=== PATIENT | female | born 1965 | race African-American/Black ===

== ENCOUNTER 2018-09-13 00:55 | Inpatient (IN) | payer OTHER, SELFPAY ==
[2018-09-13 01:35] LABS: INR-International Normal Ratio 1.1; PTT 30.1 SEC (22.9-36.1); Prothrombin Time 13.9 SEC (12.0-14.7)
[2018-09-13 01:38] LABS: ALT (SGPT) 87 U/L (8-55); AST (SGOT) 148 U/L (5-34); Albumin 3.6 g/dL (3.5-5.0); Alkaline Phosphatase 109 U/L (40-150); Anion Gap 16 mmol/L (10-20); BUN (Urea Nitrogen) 15 mg/dL (9.8-20.1); Bilirubin, Total 0.3 mg/dL (0.2-1.2); Calc. Creatinine Clearance 0 mL/min (70-130); Calcium 8.6 mg/dL (7.8-10.44); Carbon Dioxide 16 mmol/L (22-29); Chloride 112 mmol/L (98-107); Estimated GFR-MDRD 80; Globulin 2.8 g/dL (2.4-3.5); Glucose 189 mg/dL (70-105); Potassium 3.9 mmol/L (3.5-5.1); Protein, Total 6.4 g/dL (6.0-8.3); Sodium 140 mmol/L (136-145)
[2018-09-13] MEDS ORDERED: fentaNYL Citrate/PF 2,000 MCG in Sodium Chloride 0.9% 60 ML IV SCH ×2 (01:41→03:15)
[2018-09-13 01:43] LABS: Acetaminophen Less than 6.0 mcg/mL (10.0-30.0); Alcohol 25 mg/dL (Less than 10); Lipase 42 U/L (8-78); Magnesium 2.2 mg/dL (1.6-2.6); Salicylate Less than 8.0 mg/dL (15.0-30.0)
[2018-09-13 01:50] LABS: Band 17 % (5-11); Eosinophils 1 % (0-10); Lymphocytes 28 % (21-51); MDiff Complete? YES; Mean Corpuscular HGB CONC 32.1 g/dL (32.0-36.0); Mean Corpuscular Hemoglobin 30.9 pg (27.0-31.0); Mean Corpuscular Volume 96.3 fL (78.0-98.0); Mean Platelet Volume 7.8 fL (7.4-10.4); Monocytes 2 % (0-10); Neutrophil 52 % (42-75); Platelet Count 320 thou/uL (130-400); RBC Distribution Width 12.3 % (11.5-14.5); Red Blood Cell (RBC) Count 3.54 mill/uL (4.20-5.40); White Blood Cell (WBC) Count 22.8 thou/uL (4.8-10.8)
[2018-09-13 01:51] LABS: Actual Bicarbonate (HCO3a) 14.8 mEq/L (22-28); Analyzer IN Cardio ER; Base Excess (BEa) -11.9 mEq/L (-2.0 to +3.0); CO2 Tension 36.8 mmHg (35.0-45.0); Calcium, Ionized 1.03 mmol/L (1.12-1.30); Carboxyhemoglobin (COHb) 1.2 gm% (0.0-3.0); Hemoglobin (Hb) 7.7 g/dL (12.0-16.0); Potassium - ABG Lab 3.25 mmol/L (3.70-5.30)
[2018-09-13] MEDS ORDERED: Adacel (T-DAP) 0.5 ML VIAL ONE (01:52)
[2018-09-13] MEDS ORDERED: Gentamicin Sulfate 360 MG in Sodium Chloride 0.9% 100 ML IVPB SCH (02:00)
[2018-09-13 02:03] LABS: Puncture Site RBA; pH, Arterial 7.22 (7.35-7.45)
[2018-09-13] MEDS ORDERED: Ampicillin/Sulbactam 3 GM in Sodium Chloride 0.9% 100 ML IVPB SCH (02:15)
[2018-09-13] MEDS ORDERED: Fentanyl 100 MCG/2 ML VIAL ONE (02:23)
[2018-09-13] MEDS ORDERED: Midazolam HCl 5 mg/5 ml Vial ONE (02:23)
[2018-09-13] MEDS ORDERED: CEFAZOLIN 1 GM VIAL ONE (02:30)
[2018-09-13] MEDS ORDERED: Ondansetron ODT 4 MG TAB PO PRN (02:36)
[2018-09-13] MEDS ORDERED: Dextrose 5% in Water 1,000 ML IV PRN (02:36)
[2018-09-13] MEDS ORDERED: Dextrose 50% Abboject 50 ML SYRINGE SLOW IVP PRN (02:36)
[2018-09-13] MEDS ORDERED: Propofol 1,000 MG/100 ML VIAL IV PRN (02:43)
[2018-09-13] MEDS ORDERED: fentaNYL Citrate/PF 2,000 MCG in Sodium Chloride 0.9% 60 ML IV PRN (02:43)
[2018-09-13 02:51] LABS: Bilirubin Negative (Negative); Blood, Urine Trace (Negative); Clarity CLEAR (Clear); Glucose, Urine (Dipstick) Negative (Negative); Leukocyte Negative (Negative); Nitrite Negative (Negative); Protein, Urine (Dipstick) Negative (Neg-Trace); Specific Gravity, Urine 1.016 (1.002-1.036); Urobilinogen 0.2 mg/dL (0.2-1.0); pH, Urine 5.5 (5.0-9.0)
[2018-09-13 02:54] LABS: Bacteria/HPF None Seen HPF (None Seen); Hyaline Casts/LPF 7-10 HYALINE CAST LPF (0-3 Hyaline); Pathc Cast-AUWi Flag 0.72 (0-2.49); RBC/HPF 0-3 HPF (0-3); Squamous Epithelial 0-3 HPF (0-3); WBC/HPF 0-3 HPF (0-3)
[2018-09-13] MEDS ORDERED: Gentamicin Sulfate 80 MG in Premix Bag 1 BAG IVPB SCH (03:30)
[2018-09-13] MEDS ORDERED: Midazolam HCl 2 mg/2 ml Vial ONE (03:32)
[2018-09-13] MEDS ORDERED: Bacitracin Zinc Ointment 30 gm TUBE ONE (03:56)
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
[2018-09-13 04:35] VITALS: BMI 32.7
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
[2018-09-13] MEDS: Lactated Ringer's 1,000 ML IV SCH ×3 (05:30→16:21)
--- NOTE | 2018-09-13 06:25 | OP ---
PREOPERATIVE DIAGNOSES: Complex soft tissue injury, right knee (Dr. Beltran ____) complex scalp lacer ation of right parietal, periauricular with avulsion injury exposing the periosteum, calvarium, 26 cm complex laceration, full thickness. POSTOPERATIVE DIAGNOSES: Complex soft tissue injury, right knee (Dr. Beltran ____) complex scalp lace ration of right parietal, periauricular with avulsion injury exposing the periosteum, calvarium, 26 c m complex laceration, full thickness. PROCEDURE: Pulse irrigation and washout, sharp debridement of devitalized tissue, layered closure wi th drain. SURGEON: Nik Mcghee M.D. ANESTHESIA: General. NOTE: Dr. Beltran will dictate the complex soft tissue injury about the right knee closure. PROCEDURE IN DETAIL: The patient was taken to the operating room where under general anesthesia, the scalp was trimmed of uncapped hair that was in the way. The laceration extended from the preauricul ar facial area over the parietal area of the scalp to the occiput and was complex with multiple exten sions. It was devitalized periosteum and muscle layers. Pulse irrigation was performed after Betadi ne prep, devitalized tissue debrided. Complex avulsion laceration then approximated by approximating subcutaneous tissues with 3-0 Monocryl to approximate the wound and then continued suture of 3-0 Pro lily used to close the wound. A #10 Uzbek KAREN drain placed and secured with 3-0 Prolene and placed t o suction. The patient was transferred to the critical care unit in critical condition.
[2018-09-13 06:51] LABS: Actual Bicarbonate (HCO3a) 18.8 mEq/L (22-28); Base Excess (BEa) -5.8 mEq/L (-2.0 to +3.0); CO2 Tension 33.5 mmHg (35.0-45.0); Carboxyhemoglobin (COHb) 0.5 gm% (0.0-3.0); Hemoglobin (Hb) 9.6 g/dL (12.0-16.0); O2 Tension (PaO2) 236.6 mmHg (80.0-100.0); pH, Arterial 7.37 (7.35-7.45)
[2018-09-13 06:53] LABS: Puncture Site RBRACH
[2018-09-13 06:54] LABS: ALV-art Gradient 78.025 (0-20)
[2018-09-13 08:07] LABS: Anion Gap 13 mmol/L (10-20); BUN (Urea Nitrogen) 13 mg/dL (9.8-20.1); Calc. Creatinine Clearance 122 mL/min (70-130); Calcium 7.2 mg/dL (7.8-10.44); Carbon Dioxide 21 mmol/L (22-29); Chloride 112 mmol/L (98-107); Estimated GFR-MDRD Greater than 90; Glucose 141 mg/dL (70-105); Magnesium 1.5 mg/dL (1.6-2.6); Phosphorus 2.9 mg/dL (2.3-4.7); Sodium 142 mmol/L (136-145)
[2018-09-13 08:27] LABS: #Lymphocytes 0.7 thou/uL (1.20-3.40); #Monocytes 1.3 thou/uL (0.11-0.59); #Neutrophils 17.5 thou/uL (1.40-6.50); %Eosinophils 0.2 % (0.0-10.0); %Lymphocytes 3.7 % (21.0-51.0); %Monocytes 6.8 % (0.0-10.0); %Neutrophils 89.3 % (42.0-75.0); Hemoglobin 9.1 g/dL (12.0-16.0); Mean Corpuscular HGB CONC 33.3 g/dL (32.0-36.0); Mean Corpuscular Hemoglobin 29.4 pg (27.0-31.0); Mean Corpuscular Volume 88.4 fL (78.0-98.0); Mean Platelet Volume 8.3 fL (7.4-10.4); Platelet Count 114 thou/uL (130-400); RBC Distribution Width 13.2 % (11.5-14.5); White Blood Cell (WBC) Count 19.5 thou/uL (4.8-10.8)
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
[2018-09-13] MEDS: Famotidine/PF 20 mg/2ml Vial SLOW IVP SCH ×2 (09:56→21:34)
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
[2018-09-13] MEDS ORDERED: Ketorolac Tromethamine 30 MG/ML VIAL ONE (10:38)
[2018-09-13] MEDS ORDERED: Naloxone HCl 0.4 mg/ml Vial IV PRN ×2 (10:44→10:49)
[2018-09-13] MEDS ORDERED: diphenhydrAMINE 50 MG/ML VIAL IVP PRN ×2 (10:44→10:49)
[2018-09-13] MEDS ORDERED: Promethazine HCl 25 MG/ML VIAL IM PRN ×2 (10:44→10:49)
[2018-09-13] MEDS ORDERED: diphenhydrAMINE 25 MG CAP PO PRN ×2 (10:44→10:49)
[2018-09-13] MEDS ORDERED: diphenhydrAMINE 50 MG/ML VIAL IM PRN ×2 (10:44→10:49)
[2018-09-13] MEDS ORDERED: Calcium Chloride 1 GM/10 ML Abboject SYRINGE IVP SCH (10:45)
[2018-09-13] MEDS ORDERED: Communication Order-Pharmacy FS SCH ×2 (10:45→11:00)
[2018-09-13] MEDS: Ondansetron PF 4 MG/2 ML Vial IVP PRN (11:38)
[2018-09-13] MEDS: Acetaminophen 500 MG TAB PO SCH ×3 (11:39→23:48)
[2018-09-13] MEDS: HYDROmorphone 10 mg/100 ml CADD IVPB PRN (11:52)
[2018-09-13] MEDS ORDERED: ISOVUE-370 76%-LOCM 1 ML ONE (11:57)
[2018-09-13] MEDS ORDERED: Ketorolac Tromethamine 30 MG/ML VIAL IVP SCH (12:00)
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
[2018-09-13] MEDS: Ketorolac Tromethamine 30 MG/ML VIAL IVP SCH ×3 (16:18→23:48)
[2018-09-13] MEDS ORDERED: PHENYLEPHRINE-NS 100 MCG/ML 10 ML SYRINGE ONE (17:08)
[2018-09-14] MEDS: Lactated Ringer's 1,000 ML IV SCH ×3 (00:04→22:00)
[2018-09-14] MEDS: Gentamicin Sulfate 80 MG in Premix Bag 1 BAG IVPB SCH ×3 (02:51→19:12)
[2018-09-14] MEDS: Acetaminophen 500 MG TAB PO SCH ×3 (05:29→19:37)
[2018-09-14] MEDS: Ketorolac Tromethamine 30 MG/ML VIAL IVP SCH ×4 (05:29→23:59)
[2018-09-14 06:14] LABS: #Lymphocytes 1.2 thou/uL (1.20-3.40); #Monocytes 0.8 thou/uL (0.11-0.59); #Neutrophils 8.6 thou/uL (1.40-6.50); %Basophils 0.2 % (0.0-1.0); %Eosinophils 0.2 % (0.0-10.0); %Lymphocytes 11.3 % (21.0-51.0); %Monocytes 7.9 % (0.0-10.0); %Neutrophils 80.5 % (42.0-75.0); Hemoglobin 9.1 g/dL (12.0-16.0); Mean Corpuscular HGB CONC 33.5 g/dL (32.0-36.0); Mean Corpuscular Volume 89.7 fL (78.0-98.0); Mean Platelet Volume 8.3 fL (7.4-10.4); Platelet Count 86 thou/uL (130-400); RBC Distribution Width 13.9 % (11.5-14.5); Red Blood Cell (RBC) Count 3.03 mill/uL (4.20-5.40); White Blood Cell (WBC) Count 10.7 thou/uL (4.8-10.8)
[2018-09-14 06:41] LABS: Anion Gap 11 mmol/L (10-20); BUN (Urea Nitrogen) 10 mg/dL (9.8-20.1); Calc. Creatinine Clearance 132 mL/min (70-130); Calcium 8.3 mg/dL (7.8-10.44); Carbon Dioxide 26 mmol/L (22-29); Chloride 107 mmol/L (98-107); Estimated GFR-MDRD Greater than 90; Glucose 120 mg/dL (70-105); Magnesium 1.7 mg/dL (1.6-2.6); Phosphorus 2.7 mg/dL (2.3-4.7); Potassium 4.5 mmol/L (3.5-5.1); Sodium 139 mmol/L (136-145)
[2018-09-14] MEDS: Famotidine/PF 20 mg/2ml Vial SLOW IVP SCH ×2 (08:10→20:26)
--- NOTE | 2018-09-14 09:42 | PRG ---
DATE OF SERVICE: 09/14/2018 Ms. Anna this morning has been transferred to the floor and extubated. She is somewhat confused, bu t does have several narcotic pain medications on board that may be interfering with her level of cons ciousness and cognitive state. She does frequently wake up enough to have reasonable and appropriate discussion regarding her injuries and expectations. She asked about how long she will be in the hos pital. She was fitted yesterday evening by [facility] for her custom TLSO brace so she will remain on spin al precautions and on bed rest until we can obtain that. Once that has been placed she is free to pa rticipate with physical therapy per Trauma and Orthopedics recommendations. Otherwise, Neurosurgery will continue to follow.
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
[2018-09-14] MEDS ORDERED: HYDROmorphone 0.5 MG/0.5 ML SYRINGE ONE (13:19)
[2018-09-14] MEDS ORDERED: HYDROcodone/Acetaminophen 10/325 mg Tablet PO PRN ×2 (14:05)
[2018-09-14] MEDS ORDERED: Promethazine HCl 25 MG/ML VIAL SLOW IVP PRN (15:44)
[2018-09-14] MEDS ORDERED: Promethazine HCl 25 MG/ML VIAL IM PRN (15:44)
[2018-09-14] MEDS ORDERED: Ondansetron HCl/PF 4 MG/2 ML Vial IVP PRN (15:44)
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
[2018-09-14] MEDS: Ondansetron PF 4 MG/2 ML Vial IVP PRN (17:34)
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
[2018-09-14] MEDS: HYDROmorphone 10 mg/100 ml CADD IVPB PRN (19:07)
[2018-09-15] MEDS: Ondansetron PF 4 MG/2 ML Vial IVP PRN
[2018-09-15] MEDS: Gentamicin Sulfate 80 MG in Premix Bag 1 BAG IVPB SCH ×3 (03:08→18:36)
[2018-09-15] MEDS: Acetaminophen 500 MG TAB PO SCH ×5 (05:51→22:25)
[2018-09-15] MEDS: Ketorolac Tromethamine 30 MG/ML VIAL IVP SCH (05:52)
[2018-09-15 06:33] LABS: Hemoglobin 5.8 g/dL (12.0-16.0); Mean Corpuscular HGB CONC 32.2 g/dL (32.0-36.0); Mean Corpuscular Hemoglobin 29.1 pg (27.0-31.0); Mean Corpuscular Volume 90.5 fL (78.0-98.0); Platelet Count 127 thou/uL (130-400); RBC Distribution Width 13.4 % (11.5-14.5); Red Blood Cell (RBC) Count 1.98 mill/uL (4.20-5.40); White Blood Cell (WBC) Count 12.3 thou/uL (4.8-10.8)
[2018-09-15 06:34] LABS: #Lymphocytes 1.2 thou/uL (1.20-3.40); #Monocytes 0.9 thou/uL (0.11-0.59); #Neutrophils 10.2 thou/uL (1.40-6.50); %Basophils 0.3 % (0.0-1.0); %Eosinophils 0.1 % (0.0-10.0); %Lymphocytes 9.9 % (21.0-51.0); %Monocytes 7.1 % (0.0-10.0); %Neutrophils 82.5 % (42.0-75.0)
[2018-09-15] MEDS: Lactated Ringer's 1,000 ML IV SCH ×2 (08:06→15:13)
[2018-09-15 08:53] LABS: Anion Gap 5 mmol/L (10-20); BUN (Urea Nitrogen) 7 mg/dL (9.8-20.1); Calc. Creatinine Clearance 139 mL/min (70-130); Calcium 8.2 mg/dL (7.8-10.44); Carbon Dioxide 34 mmol/L (22-29); Chloride 104 mmol/L (98-107); Estimated GFR-MDRD Greater than 90; Glucose 114 mg/dL (70-105); Magnesium 1.5 mg/dL (1.6-2.6); Phosphorus 1.7 mg/dL (2.3-4.7); Potassium 4.2 mmol/L (3.5-5.1); Sodium 139 mmol/L (136-145)
[2018-09-15] MEDS ORDERED: Bisacodyl 10 MG SUPP PR PRN (09:04)
[2018-09-15] MEDS: Famotidine/PF 20 mg/2ml Vial SLOW IVP SCH ×2 (10:13→21:23)
[2018-09-15] MEDS ORDERED: Magnesium 2 GM/50 ML 2 GM in Premix Bag 1 BAG IVPB SCH (10:15)
[2018-09-15] MEDS: HYDROcodone/Acetaminophen 10/325 mg Tablet PO SCH ×2 (11:21→18:32)
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
[2018-09-15] MEDS ORDERED: Ketorolac Tromethamine 30 MG/ML VIAL IVP SCH (12:00)
[2018-09-15] MEDS: Ascorbic Acid 500 mg Chewable Tablet PO SCH (21:22)
[2018-09-15] MEDS: Senokot 8.6 MG TAB PO SCH (21:23)
[2018-09-16] MEDS: HYDROcodone/Acetaminophen 10/325 mg Tablet PO SCH ×2 (00:09→06:07)
[2018-09-16] MEDS: Gentamicin Sulfate 80 MG in Premix Bag 1 BAG IVPB SCH (02:00)
[2018-09-16] MEDS: Cyclobenzaprine 10 MG TAB PO PRN ×2 (02:07→08:06)
[2018-09-16] MEDS: Lactated Ringer's 1,000 ML IV SCH ×2 (02:38→06:24)
[2018-09-16] MEDS: Acetaminophen 500 MG TAB PO SCH ×5 (05:40→23:56)
[2018-09-16 05:48] LABS: ALT (SGPT) 33 U/L (8-55); AST (SGOT) 70 U/L (5-34); Albumin 2.8 g/dL (3.5-5.0); Alkaline Phosphatase 83 U/L (40-150); Anion Gap 11 mmol/L (10-20); BUN (Urea Nitrogen) 7 mg/dL (9.8-20.1); Bilirubin, Total 1.1 mg/dL (0.2-1.2); Calc. Creatinine Clearance 130 mL/min (70-130); Calcium 8.4 mg/dL (7.8-10.44); Carbon Dioxide 27 mmol/L (22-29); Chloride 106 mmol/L (98-107); Estimated GFR-MDRD Greater than 90; Globulin 2.5 g/dL (2.4-3.5); Glucose 94 mg/dL (70-105); Magnesium 1.9 mg/dL (1.6-2.6); Potassium 3.9 mmol/L (3.5-5.1); Protein, Total 5.3 g/dL (6.0-8.3); Sodium 140 mmol/L (136-145)
[2018-09-16] MEDS: Famotidine/PF 20 mg/2ml Vial SLOW IVP SCH ×2 (08:06→21:41)
[2018-09-16] MEDS: Senokot 8.6 MG TAB PO SCH ×2 (08:06→21:41)
[2018-09-16] MEDS: Ascorbic Acid 500 mg Chewable Tablet PO SCH ×2 (08:06→21:41)
[2018-09-16] MEDS: Polyethylene Glycol 3350 17 GM Packet PO SCH (08:07)
[2018-09-16 08:10] LABS: #Basophils 0.1 thou/uL (0.0-0.2); #Eosinphils 0.2 thou/uL (0.0-0.7); #Lymphocytes 1.3 thou/uL (1.20-3.40); #Monocytes 0.8 thou/uL (0.11-0.59); #Neutrophils 6.9 thou/uL (1.40-6.50); %Basophils 0.5 % (0.0-1.0); %Eosinophils 2.2 % (0.0-10.0); %Lymphocytes 14.3 % (21.0-51.0); %Monocytes 8.1 % (0.0-10.0); %Neutrophils 74.8 % (42.0-75.0); Hemoglobin 8.2 g/dL (12.0-16.0); Mean Corpuscular HGB CONC 32.5 g/dL (32.0-36.0); Mean Corpuscular Hemoglobin 29.1 pg (27.0-31.0); Mean Corpuscular Volume 89.5 fL (78.0-98.0); Mean Platelet Volume 7.9 fL (7.4-10.4); Platelet Count 165 thou/uL (130-400); RBC Distribution Width 13.8 % (11.5-14.5); Red Blood Cell (RBC) Count 2.82 mill/uL (4.20-5.40); White Blood Cell (WBC) Count 9.2 thou/uL (4.8-10.8)
[2018-09-16] MEDS: Ibuprofen 800 MG TAB PO SCH ×2 (10:11→18:09)
[2018-09-16] MEDS ORDERED: traMADol HCl 50 MG TAB PO PRN (11:38)
[2018-09-16] MEDS ORDERED: Magnesium Sulfate 3 GM in Sodium Chloride 0.9% 100 ML IVPB SCH (12:00)
[2018-09-16] MEDS ORDERED: Potassium Phosphate 15 MMOL in Sodium Chloride 0.9% 250 ML 250 ML IVPB SCH (12:00)
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
[2018-09-16] MEDS: traMADol HCl 50 MG TAB PO SCH ×3 (12:51→23:56)
[2018-09-16] MEDS ORDERED: Clindamycin/D5W 600 MG in Premix Bag 1 BAG IVPB SCH (20:00)
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
[2018-09-17] MEDS: Ibuprofen 800 MG TAB PO SCH ×3 (02:40→18:08)
[2018-09-17 05:13] LABS: Anion Gap 12 mmol/L (10-20); BUN (Urea Nitrogen) 7 mg/dL (9.8-20.1); Calc. Creatinine Clearance 132 mL/min (70-130); Calcium 8.5 mg/dL (7.8-10.44); Carbon Dioxide 29 mmol/L (22-29); Chloride 106 mmol/L (98-107); Estimated GFR-MDRD Greater than 90; Glucose 93 mg/dL (70-105); Phosphorus 2.2 mg/dL (2.3-4.7); Potassium 3.5 mmol/L (3.5-5.1); Sodium 143 mmol/L (136-145)
[2018-09-17] MEDS: Acetaminophen 500 MG TAB PO SCH ×4 (05:31→23:59)
[2018-09-17] MEDS: traMADol HCl 50 MG TAB PO SCH ×4 (05:32→21:53)
[2018-09-17 08:21] LABS: #Eosinphils 0.2 thou/uL (0.0-0.7); #Lymphocytes 1.4 thou/uL (1.20-3.40); #Monocytes 0.8 thou/uL (0.11-0.59); #Neutrophils 6.3 thou/uL (1.40-6.50); %Basophils 0.4 % (0.0-1.0); %Eosinophils 2.6 % (0.0-10.0); %Lymphocytes 16.1 % (21.0-51.0); %Monocytes 8.9 % (0.0-10.0); Hemoglobin 8.7 g/dL (12.0-16.0); Mean Corpuscular HGB CONC 32.4 g/dL (32.0-36.0); Mean Corpuscular Hemoglobin 29.4 pg (27.0-31.0); Mean Corpuscular Volume 90.7 fL (78.0-98.0); Mean Platelet Volume 7.4 fL (7.4-10.4); Platelet Count 243 thou/uL (130-400); Red Blood Cell (RBC) Count 2.96 mill/uL (4.20-5.40); White Blood Cell (WBC) Count 8.8 thou/uL (4.8-10.8)
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
[2018-09-17] MEDS: Famotidine/PF 20 mg/2ml Vial SLOW IVP SCH ×2 (09:48→21:55)
[2018-09-17] MEDS: Senokot 8.6 MG TAB PO SCH ×2 (09:48→21:54)
[2018-09-17] MEDS: Polyethylene Glycol 3350 17 GM Packet PO SCH (09:48)
[2018-09-17] MEDS: Ascorbic Acid 500 mg Chewable Tablet PO SCH ×2 (09:48→21:54)
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
[2018-09-17] MEDS: Cyclobenzaprine 10 MG TAB PO PRN ×2 (12:12→19:52)
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
[2018-09-17] MEDS ORDERED: ePHEDrine/0.9% NaCl/PF SYRINGE 50 mg/10 ml ONE (13:46)
[2018-09-17] MEDS ORDERED: PROPOFOL 200 MG/20 ML VIAL ONE (13:46)
[2018-09-17] MEDS ORDERED: Ondansetron PF 4 MG/2 ML Vial ONE (13:46)
[2018-09-17] MEDS ORDERED: Lidocaine 1% PF 5 ML VIAL ONE (13:46)
[2018-09-17] MEDS ORDERED: Clindamycin/D5W 600 mg/50 ml Premix Bag ONE (15:05)
[2018-09-17] MEDS ORDERED: Bacitracin Zinc Ointment 30 gm TUBE ONE (15:23)
[2018-09-17] MEDS ORDERED: Bupivacaine PF 0.5% 30 ML VIAL ONE (15:23)
[2018-09-17] MEDS ORDERED: Fentanyl 100 MCG/2 ML VIAL ONE (16:14)
[2018-09-17] MEDS ORDERED: Thrombin 5000 UNITS/5 ML VIAL ONE (17:28)
[2018-09-17] MEDS ORDERED: Ondansetron HCl/PF 4 MG/2 ML Vial IVP PRN (18:01)
[2018-09-17] MEDS ORDERED: Promethazine HCl 25 MG/ML VIAL SLOW IVP PRN (18:01)
[2018-09-17] MEDS ORDERED: Promethazine HCl 25 MG/ML VIAL IM PRN (18:01)
[2018-09-18] MEDS: traMADol HCl 50 MG TAB PO SCH ×4 (03:33→22:10)
[2018-09-18] MEDS: Ibuprofen 800 MG TAB PO SCH ×3 (03:33→18:05)
[2018-09-18] MEDS: Acetaminophen 500 MG TAB PO SCH ×3 (05:47→18:05)
[2018-09-18 07:25] LABS: #Basophils 0.1 thou/uL (0.0-0.2); #Eosinphils 0.3 thou/uL (0.0-0.7); #Lymphocytes 1.5 thou/uL (1.20-3.40); #Neutrophils 7.5 thou/uL (1.40-6.50); %Basophils 0.6 % (0.0-1.0); %Eosinophils 3.1 % (0.0-10.0); %Lymphocytes 14.6 % (21.0-51.0); %Monocytes 9.7 % (0.0-10.0); Hemoglobin 8.8 g/dL (12.0-16.0); Mean Corpuscular HGB CONC 32.7 g/dL (32.0-36.0); Mean Corpuscular Hemoglobin 29.6 pg (27.0-31.0); Mean Corpuscular Volume 90.5 fL (78.0-98.0); Platelet Count 330 thou/uL (130-400); RBC Distribution Width 14.1 % (11.5-14.5); Red Blood Cell (RBC) Count 2.98 mill/uL (4.20-5.40); White Blood Cell (WBC) Count 10.4 thou/uL (4.8-10.8)
[2018-09-18] MEDS ORDERED: Lisinopril 10 MG TAB PO SCH (09:30)
[2018-09-18] MEDS: Ascorbic Acid 500 mg Chewable Tablet PO SCH ×2 (09:58→20:05)
[2018-09-18] MEDS: Famotidine/PF 20 mg/2ml Vial SLOW IVP SCH ×2 (09:58→20:05)
[2018-09-18] MEDS: Polyethylene Glycol 3350 17 GM Packet PO SCH (10:02)
[2018-09-18] MEDS: Senokot 8.6 MG TAB PO SCH ×2 (10:02→20:06)
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
[2018-09-18] MEDS: FLUoxetine HCl 20 MG CAP PO SCH ×2 (15:54→20:05)
[2018-09-18] MEDS: Cyclobenzaprine 10 MG TAB PO PRN (20:05)
[2018-09-19] MEDS: Acetaminophen 500 MG TAB PO SCH ×5 (00:03→22:54)
[2018-09-19] MEDS: Ibuprofen 800 MG TAB PO SCH ×3 (03:01→18:09)
[2018-09-19] MEDS: traMADol HCl 50 MG TAB PO SCH ×4 (03:02→22:54)
[2018-09-19] MEDS: Levothyroxine Sodium 112 MCG TAB PO SCH (08:22)
[2018-09-19] MEDS: Ascorbic Acid 500 mg Chewable Tablet PO SCH ×2 (09:16→20:33)
[2018-09-19] MEDS: Famotidine/PF 20 mg/2ml Vial SLOW IVP SCH ×2 (09:16→20:33)
[2018-09-19] MEDS: Polyethylene Glycol 3350 17 GM Packet PO SCH (09:16)
[2018-09-19] MEDS: Senokot 8.6 MG TAB PO SCH ×2 (09:16→20:33)
[2018-09-19] MEDS: Lisinopril 10 MG TAB PO SCH (09:17)
[2018-09-19] MEDS: FLUoxetine HCl 20 MG CAP PO SCH ×3 (09:17→20:33)
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
[2018-09-19] MEDS: Ferrous Sulfate 325 MG TAB PO SCH (16:17)
[2018-09-20] MEDS: Ibuprofen 800 MG TAB PO SCH ×3 (03:11→18:26)
[2018-09-20] MEDS: traMADol HCl 50 MG TAB PO SCH ×4 (03:11→21:58)
[2018-09-20 04:07] LABS: #Basophils 0.1 thou/uL (0.0-0.2); #Eosinphils 0.4 thou/uL (0.0-0.7); #Lymphocytes 2.1 thou/uL (1.20-3.40); #Monocytes 1.6 thou/uL (0.11-0.59); %Basophils 0.6 % (0.0-1.0); %Eosinophils 2.2 % (0.0-10.0); %Monocytes 9.7 % (0.0-10.0); %Neutrophils 74.5 % (42.0-75.0); Mean Corpuscular HGB CONC 32.5 g/dL (32.0-36.0); Mean Corpuscular Volume 92.3 fL (78.0-98.0); Mean Platelet Volume 6.9 fL (7.4-10.4); Platelet Count 592 thou/uL (130-400); RBC Distribution Width 14.9 % (11.5-14.5); Red Blood Cell (RBC) Count 3.35 mill/uL (4.20-5.40); White Blood Cell (WBC) Count 16.2 thou/uL (4.8-10.8)
[2018-09-20 04:21] LABS: Anion Gap 12 mmol/L (10-20); BUN (Urea Nitrogen) 12 mg/dL (9.8-20.1); Calc. Creatinine Clearance 123 mL/min (70-130); Calcium 9.2 mg/dL (7.8-10.44); Carbon Dioxide 27 mmol/L (22-29); Chloride 104 mmol/L (98-107); Estimated GFR-MDRD Greater than 90; Glucose 94 mg/dL (70-105); Magnesium 2.1 mg/dL (1.6-2.6); Phosphorus 3.3 mg/dL (2.3-4.7); Potassium 4.1 mmol/L (3.5-5.1); Sodium 139 mmol/L (136-145)
[2018-09-20] MEDS: Acetaminophen 500 MG TAB PO SCH ×4 (06:34→23:21)
[2018-09-20] MEDS: Levothyroxine Sodium 112 MCG TAB PO SCH (07:54)
[2018-09-20] MEDS: Lisinopril 10 MG TAB PO SCH (07:55)
[2018-09-20] MEDS: Ascorbic Acid 500 mg Chewable Tablet PO SCH ×2 (07:55→21:57)
[2018-09-20] MEDS: Ferrous Sulfate 325 MG TAB PO SCH ×2 (07:55→16:54)
[2018-09-20] MEDS: FLUoxetine HCl 20 MG CAP PO SCH ×3 (07:55→21:57)
[2018-09-20] MEDS: Famotidine/PF 20 mg/2ml Vial SLOW IVP SCH (07:56)
[2018-09-20] MEDS: Senokot 8.6 MG TAB PO SCH ×2 (07:56→21:58)
[2018-09-20] MEDS: Polyethylene Glycol 3350 17 GM Packet PO SCH (07:56)
--- NOTE | 2018-09-20 08:47 | OP ---
PREOPERATIVE DIAGNOSES: Right thigh complex 25-cm wound with 8 x 3-cm superior defect of skin with e xposed quadriceps muscle and some tenderness. PROCEDURES PERFORMED: 1. Rearrangement of wound/closure of wound 18 cm. 2. Split thickness skin graft of right thigh to 8 x 4 cm area of the wound. 3. Debridement of wound, [address] level using the following techniques and instrumentations: A. Tenotomy scissors, curettes, Adson, Alexandru Sorenson, [place] blade, and 15-blade knife. B. Excisional technique. C. Down to including, but not penetrating the fascia muscle into bone and due to no gross infection or contamination, but patient had some very deep medial and lateral recesses, which were inspected an d found to be clean and were treated afterwards with drains in each one separately. INDICATIONS: The patient was admitted for stage wound management and in the meantime between my firs t consultation and now, we discovered that patient has a massive rotator cuff tear, which will be guille ated by the primary orthopedist, Dr. Beltran. Today, the patient was brought in because the wound stefan wed evidence of being clean with VAC treatment; already had two debridements and it is now 6 days sin ce the injury. DESCRIPTION OF PROCEDURE: After successful general LMA technique, the limb was prepped and draped. We exposed the entire thigh up to the inguinal ligament and the buttocks crease/gluteal . We t hen removed the VAC dressing, found a small collection of blood in each recess, but we inspected the wound, we found no gross infection, hematoma, or similar abscess. We thus began by debriding the ent angela circumferential wound to include 1 mm of the deep fat down to the fascia. We then obtained hemos tasis. We arranged the wound, which was basically shaped like an open cross to a J with the opening of the J now and not being anywhere near the rectus tendon, but now primarily just all medialis obliq ue muscle. We then finished the debridement with instrumentation listed above, irrigated the wound with 5 liters of normal saline and Pulsavac pressure, and then prepared to close. Closure was accomplished in two layers with a 0 Vicryl deep layer and a subcutaneous 2-0 Vicryl followed by an epidermal closure wit h a 2-0 nylon. Patient then had the wound converted to a J-shaped from previous T with the open segm ent being approximately 7 x 2 cm and over vastus medialis muscle and not tendon. We then harvested t he graft completely separate, but on the right thigh proximally and direct lateral from the primary i ncision. This was harvested at a thickness of 0.20. We injected the area with 15 mL of 0.5% Marcain e using the remaining 15 mL on the primary wound. We then placed thrombin-soaked Gelfoam, meshed the graft 1 to 1.5 and then secured it to the muscle and the almost 6-mm cavity side [place] with a staple . We then placed an appropriate bacitracin, Adaptic, bolster with mineral oil-soaked ABD; and then a bulky dressing with bacitracin Adaptic on the remaining portion of wound, 4 x 4's, Kerlix, and Dane w rap. Thrombin-soaked Gelfoam underneath a Tegaderm layers, multiple Tegaderm layers were placed on t he donor site. Bulky dressing was applied along with an Dane wrap from [id number] inguinal line and the patient left the operating room without evidence of anesthetic or operative complications.
--- NOTE | 2018-09-20 11:53 | ULT ---
RIGHT AND LEFT LOWER EXTREMITY VENOUS DOPPLER ULTRASOUND EVALUATION: Date: 09-20-18 History: Bilateral lower extremity swelling and edema. FINDINGS: Multiple longitudinal and transverse images of the right and left lower extremity venous system was o btained using a multihertz linear array transducer. Real-time, color flow, and spectral waveform dopp ler analysis demonstrates no evidence of acute or old clot seen in the right or left common femoral, superficial femoral, femoral profunda, popliteal, posterior tibial vein, post trifurcation veins and right and left greater saphenous veins. IMPRESSION: No evidence of right or left lower extremity deep venous thrombosis. POS: [facility]
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
[2018-09-20] MEDS ORDERED: Enoxaparin Sodium 40 MG/0.4 ML SYRINGE SC SCH (21:00)
[2018-09-21] MEDS: Cyclobenzaprine 10 MG TAB PO PRN (01:43)
[2018-09-21] MEDS: Ibuprofen 800 MG TAB PO SCH ×2 (01:43→09:33)
[2018-09-21] MEDS: Acetaminophen 500 MG TAB PO SCH ×2 (04:58→10:31)
[2018-09-21] MEDS: traMADol HCl 50 MG TAB PO SCH ×2 (04:58→09:31)
[2018-09-21] MEDS: Ascorbic Acid 500 mg Chewable Tablet PO SCH (08:36)
[2018-09-21] MEDS: Ferrous Sulfate 325 MG TAB PO SCH (08:36)
[2018-09-21] MEDS: Levothyroxine Sodium 112 MCG TAB PO SCH (08:36)
[2018-09-21] MEDS: Lisinopril 10 MG TAB PO SCH (08:36)
[2018-09-21] MEDS: FLUoxetine HCl 20 MG CAP PO SCH ×2 (08:36→14:42)
[2018-09-21] MEDS: Senokot 8.6 MG TAB PO SCH (08:39)
[2018-09-21] MEDS: Polyethylene Glycol 3350 17 GM Packet PO SCH (08:39)
[2018-09-21 11:32] VITALS: BP 124/78; TEMP 98.6
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
== END 2018-09-21 14:56 | disposition home or self-care (01) | DRG 40 ==
LOC: ERS 00:55 → SDC/OP 02:36 → CCU 04:19 → EDBD 04:19 → SURG B 16:11
PROVIDERS: ADMIT Specialist; ATTEND Specialist
PROC: 0JB00ZZ Excision of Scalp Subcutaneous Tissue and Fascia, Open Approach (ICD-10-PCS; principal; 2018-09-13)
PROC: 5A1935Z Respiratory Ventilation, Less than 24 Consecutive Hours (ICD-10-PCS; 2018-09-13)
PROC: 0BH17EZ Insertion of Endotracheal Airway into Trachea, Via Natural or Artificial Opening (ICD-10-PCS; 2018-09-13)
PROC: 0JD Subcutaneous Tissue and Fascia, Extraction (ICD-10-PCS; 2018-09-13)
PROC: 0KBQ0ZZ Excision of Right Upper Leg Muscle, Open Approach (ICD-10-PCS; 2018-09-14)
PROC: 30233N1 Transfusion of Nonautologous Red Blood Cells into Peripheral Vein, Percutaneous Approach (ICD-10-PCS; 2018-09-14)
DX: S02.19XA Other fracture of base of skull, initial encounter for closed fracture (principal); J96.01 Acute respiratory failure with hypoxia; S22.061A Stable burst fracture of T7-T8 vertebra, initial encounter for closed fracture; D62 Acute posthemorrhagic anemia; E78.6 Lipoprotein deficiency; E83.42 Hypomagnesemia; V24.5 Motorcycle passenger injured in collision with heavy transport vehicle or bus in traffic accident; S62.202A Unspecified fracture of first metacarpal bone, left hand, initial encounter for closed fracture; S01.01XA Laceration without foreign body of scalp, initial encounter; S71.112A Laceration without foreign body, left thigh, initial encounter; S06.0X9A Concussion with loss of consciousness of unspecified duration, initial encounter; R40.2363 Coma scale, best motor response, obeys commands, at hospital admission; R40.2253 Coma scale, best verbal response, oriented, at hospital admission; R40.2143 Coma scale, eyes open, spontaneous, at hospital admission; S81.011A Laceration without foreign body, right knee, initial encounter; E83.39 Other disorders of phosphorus metabolism; R40.2413 Glasgow coma scale score 13-15, at hospital admission
CPT/HCPCS: 26600; 31500; 36415; 36416; 36430; 36556; 70450; 71045; 71260; 72125; 74177; 80048; 80053; 80307; 81003; 81015; 82150; 82550; 82805; 83690; 83735; 84100; 85025; 85610; 85730; 86850; 86900; 86901; 88304; 90471; 90715; 93970; 94003; 96361; 96374; 96375; 99292; G0390; G8978-GP-CL; G8979-GP-CI; G8987-GO-CK; G8988-GO-CI; J0295; J0690; J1170; J1580; J1650; J1885; J2001; J2250; J2405; J2704; J3010; J3475; J3490; J7050; L0484; P9016; P9048; S0020; S0028

== ENCOUNTER 2018-09-28 18:33 | Inpatient (IN) | payer OTHER, SELFPAY ==
[~2018-09-28 18:33] MED LIST: Ketorolac Tromethamine 30 MG/ML VIAL ONE; Lidocaine 1% PF 5 ML VIAL ONE; Ondansetron PF 4 MG/2 ML Vial ONE; PHENYLEPHRINE-NS 100 MCG/ML 10 ML SYRINGE ONE; PROPOFOL 200 MG/20 ML VIAL ONE
[2018-09-28] MEDS ORDERED: Ketorolac Tromethamine 30 MG/ML VIAL IVP SCH (20:00)
[2018-09-28] MEDS ORDERED: Promethazine HCl 25 MG/ML VIAL IM PRN (20:12)
[2018-09-28 20:32] LABS: #Basophils 0.1 thou/uL (0.0-0.2); #Eosinphils 0.4 thou/uL (0.0-0.7); #Lymphocytes 0.8 thou/uL (1.20-3.40); #Monocytes 0.6 thou/uL (0.11-0.59); #Neutrophils 9.8 thou/uL (1.40-6.50); %Basophils 0.7 % (0.0-1.0); %Eosinophils 3.6 % (0.0-10.0); %Lymphocytes 6.5 % (21.0-51.0); %Monocytes 5.4 % (0.0-10.0); %Neutrophils 83.7 % (42.0-75.0); Hemoglobin 10.5 g/dL (12.0-16.0); Mean Corpuscular HGB CONC 31.1 g/dL (32.0-36.0); Mean Corpuscular Hemoglobin 29.7 pg (27.0-31.0); Mean Corpuscular Volume 95.4 fL (78.0-98.0); Mean Platelet Volume 6.4 fL (7.4-10.4); Platelet Count 880 thou/uL (130-400); RBC Distribution Width 14.8 % (11.5-14.5); Red Blood Cell (RBC) Count 3.53 mill/uL (4.20-5.40); White Blood Cell (WBC) Count 11.7 thou/uL (4.8-10.8)
[2018-09-28] MEDS: Morphine 2 MG/ML SYRINGE SLOW IVP PRN (21:22)
[2018-09-28] MEDS: Dextrose 5 % And 0.9 % NaCl 1,000 ML IV SCH (21:28)
[2018-09-28] MEDS ORDERED: Sodium Chloride 0.9% 50 ML ONE (22:27)
[2018-09-29 00:04] VITALS: BMI 30.8
[2018-09-29] MEDS ORDERED: Fentanyl 100 MCG/2 ML VIAL ONE (00:09)
[2018-09-29] MEDS ORDERED: Promethazine HCl 25 MG/ML VIAL SLOW IVP PRN (01:07)
[2018-09-29] MEDS ORDERED: Promethazine HCl 25 MG/ML VIAL IM PRN (01:07)
[2018-09-29] MEDS ORDERED: HYDROmorphone 2 MG/ML VIAL SLOW IVP PRN (01:07)
[2018-09-29] MEDS ORDERED: Ondansetron HCl/PF 4 MG/2 ML Vial IVP PRN (01:07)
[2018-09-29] MEDS ORDERED: Communication Order-Pharmacy FS SCH (01:30)
[2018-09-29] MEDS ORDERED: Acetaminophen 325 MG TAB PO PRN (01:34)
[2018-09-29] MEDS ORDERED: Ondansetron PF 4 MG/2 ML Vial IV PRN (01:34)
[2018-09-29] MEDS ORDERED: Bisacodyl 10 MG SUPP PR PRN (01:34)
[2018-09-29] MEDS ORDERED: Milk Of Magnesia 30 ML UDCUP PO PRN (01:34)
[2018-09-29] MEDS ORDERED: Meperidine HCl/PF 25 MG/ML VIAL IM PRN (01:40)
[2018-09-29] MEDS: Morphine 2 MG/ML SYRINGE IVP PRN ×2 (02:41→05:24)
[2018-09-29] MEDS: Vancomycin HCl 1 GM in Premix Bag 1 BAG IVPB SCH ×2 (02:43→13:55)
[2018-09-29 05:25] LABS: #Eosinphils 0.4 thou/uL (0.0-0.7); #Lymphocytes 0.9 thou/uL (1.20-3.40); #Monocytes 0.7 thou/uL (0.11-0.59); #Neutrophils 6.1 thou/uL (1.40-6.50); %Basophils 0.4 % (0.0-1.0); %Eosinophils 5.1 % (0.0-10.0); %Lymphocytes 11.2 % (21.0-51.0); %Monocytes 8.7 % (0.0-10.0); %Neutrophils 74.7 % (42.0-75.0); Hemoglobin 9.5 g/dL (12.0-16.0); Mean Corpuscular HGB CONC 31.1 g/dL (32.0-36.0); Mean Corpuscular Hemoglobin 29.9 pg (27.0-31.0); Mean Corpuscular Volume 96.1 fL (78.0-98.0); Mean Platelet Volume 6.6 fL (7.4-10.4); Platelet Count 767 thou/uL (130-400); RBC Distribution Width 14.9 % (11.5-14.5); Red Blood Cell (RBC) Count 3.18 mill/uL (4.20-5.40); White Blood Cell (WBC) Count 8.1 thou/uL (4.8-10.8)
[2018-09-29] MEDS: Ketorolac Tromethamine 30 MG/ML VIAL IVP SCH ×4 (05:27→23:59)
[2018-09-29] MEDS: Dextrose 5 % And 0.9 % NaCl 1,000 ML IV SCH ×2 (07:07→17:55)
[2018-09-29] MEDS ORDERED: TETANUS AND DIPHTHERIA TOX/PF 0.5 ML DISP.SYRIN IM SCH (09:00)
[2018-09-29] MEDS: Morphine 2 MG/ML SYRINGE SLOW IVP PRN (09:01)
[2018-09-29] MEDS: HYDROcodone/Acetaminophen 10/325 mg Tablet PO PRN ×4 (09:44→21:53)
[2018-09-29] MEDS: Aspirin 81 mg Enteric Coated Tablet PO SCH ×2 (09:44→21:19)
--- NOTE | 2018-09-29 19:35 | ULT ---
CAROTID DUPLEX ULTRASOUND: 09/29/18 INDICATION: Concern for possible carotid stenosis. FINDINGS: There is intimal thickening involving the common carotid arteries bilaterally. There is mild atherosc lerotic plaque involving the proximal left internal carotid artery. Peak systolic velocity within the right CCA was 71.5 cm/s and left CCA 100.6 cm/s. Peak systolic velocity within the right ICA was 96.2 cm/s and left ICA 96.8 cm/s. Right ICA to CCA ratio is 1.35 and left is 0.96. Antegrade flow seen within both vertebral arteries. IMPRESSION: No hemodynamically significant stenosis demonstrated. POS: [facility]
--- NOTE | 2018-09-29 19:39 | RAD ---
THREE VIEWS OF THE RIGHT SHOULDER: 09/29/18 FINDINGS: There is a comminuted right scapular body fracture with fracture extension into the glenoid neck. The re is some bony callus formation seen along the inferior aspect of the glenoid neck indicative of lik antonio some interval healing. AC joint is normal appearing. There are multiple right sided rib fractures . The rib fractures of the right 3rd through 7th ribs posterolaterally. No pneumothorax is evident. IMPRESSION: 1. Healing right scapular body and glenoid neck fracture. 2. Multiple moderately displaced right sided rib fractures. POS: [facility]
[2018-09-30] MEDS: HYDROcodone/Acetaminophen 10/325 mg Tablet PO PRN ×4 (03:10→16:56)
[2018-09-30 05:39] LABS: #Basophils 0.1 thou/uL (0.0-0.2); #Eosinphils 0.5 thou/uL (0.0-0.7); #Monocytes 1.2 thou/uL (0.11-0.59); #Neutrophils 5.6 thou/uL (1.40-6.50); %Basophils 0.9 % (0.0-1.0); %Lymphocytes 11.5 % (21.0-51.0); %Monocytes 14.1 % (0.0-10.0); %Neutrophils 67.5 % (42.0-75.0); Hemoglobin 8.9 g/dL (12.0-16.0); Mean Corpuscular HGB CONC 32.4 g/dL (32.0-36.0); Mean Corpuscular Hemoglobin 31.1 pg (27.0-31.0); Mean Corpuscular Volume 95.9 fL (78.0-98.0); Mean Platelet Volume 6.6 fL (7.4-10.4); Platelet Count 668 thou/uL (130-400); RBC Distribution Width 14.5 % (11.5-14.5); Red Blood Cell (RBC) Count 2.87 mill/uL (4.20-5.40); White Blood Cell (WBC) Count 8.2 thou/uL (4.8-10.8)
[2018-09-30] MEDS: Morphine 2 MG/ML SYRINGE IVP PRN (05:57)
[2018-09-30] MEDS: Ketorolac Tromethamine 30 MG/ML VIAL IVP SCH (05:59)
[2018-09-30] MEDS: Aspirin 81 mg Enteric Coated Tablet PO SCH ×2 (07:53→20:17)
[2018-09-30] MEDS: Dextrose 5 % And 0.9 % NaCl 1,000 ML IV SCH ×3 (08:24→23:52)
--- NOTE | 2018-09-30 09:28 | RAD ---
THORACIC SPINE 3 VIEWS: Date: 09/30/18 CLINICAL HISTORY: Pain. FINDINGS: There is a moderate to severe compression fracture of the mid thoracic spine with associated kyphosis . There is skeletal demineralization and osseous degenerative changes. Multiple metallic clips overli e the imaged upper abdomen. Several right rib deformities are incompletely assessed. IMPRESSION: 1. Moderate to severe mid thoracic spine compression fracture. This was documented on preceding CT e xam of 09/13/18. 2. Several right rib fractures are partially visualized. POS: [facility]
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
[2018-09-30] MEDS: Ketorolac Tromethamine 30 MG/ML VIAL IVP PRN (11:56)
[2018-09-30] MEDS ORDERED: Ketorolac Tromethamine 30 MG/ML VIAL IVP PRN (12:00)
[2018-09-30] MEDS ORDERED: Cefepime 2 GM in Sodium Chloride 0.9% 100 ML IVPB SCH (12:00)
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
[2018-09-30] MEDS: Cefepime 2 GM in Sodium Chloride 0.9% 100 ML IVPB SCH (13:42)
[2018-09-30] MEDS ORDERED: Clindamycin/D5W 900 MG in Premix Bag 1 BAG IVPB SCH (19:15)
[2018-09-30] MEDS: HYDROcodone/Acetaminophen 7.5/325 mg Tablet PO PRN (20:17)
[2018-10-01] MEDS: HYDROcodone/Acetaminophen 10/325 mg Tablet PO PRN ×3 (00:45→13:26)
[2018-10-01] MEDS: HYDROcodone/Acetaminophen 7.5/325 mg Tablet PO PRN ×2 (04:39→22:37)
[2018-10-01] MEDS: Morphine 2 MG/ML SYRINGE IVP PRN ×4 (05:34→22:38)
[2018-10-01] MEDS: Ketorolac Tromethamine 30 MG/ML VIAL IVP PRN (07:28)
[2018-10-01] MEDS: Dextrose 5 % And 0.9 % NaCl 1,000 ML IV SCH ×2 (09:00→20:58)
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
[2018-10-01] MEDS ORDERED: PHENYLEPHRINE-NS 100 MCG/ML 10 ML SYRINGE ONE (12:59)
[2018-10-01] MEDS ORDERED: ePHEDrine/0.9% NaCl/PF SYRINGE 50 mg/10 ml ONE (12:59)
[2018-10-01] MEDS ORDERED: Metoclopramide HCl 10 MG/2 ML VIAL ONE (12:59)
[2018-10-01] MEDS ORDERED: PROPOFOL 200 MG/20 ML VIAL ONE (12:59)
[2018-10-01] MEDS ORDERED: Dexamethasone 20 MG/5 ML VIAL ONE (12:59)
[2018-10-01] MEDS ORDERED: Ondansetron PF 4 MG/2 ML Vial ONE (12:59)
[2018-10-01] MEDS ORDERED: Ketorolac Tromethamine 30 MG/ML VIAL ONE (12:59)
[2018-10-01] MEDS ORDERED: Lidocaine 1% PF 5 ML VIAL ONE (12:59)
[2018-10-01] MEDS: Cefepime 2 GM in Sodium Chloride 0.9% 100 ML IVPB SCH ×2 (13:26)
[2018-10-01] MEDS: Aspirin 81 mg Enteric Coated Tablet PO SCH ×2 (13:29→20:58)
[2018-10-01] MEDS ORDERED: Clindamycin/D5W 900 mg/50 ml Premix Bag ONE (18:05)
[2018-10-01] MEDS ORDERED: Sodium Chloride 0.9% 50 ML ONE (18:39)
[2018-10-01] MEDS ORDERED: Thrombin 5000 UNITS/5 ML VIAL ONE (18:39)
[2018-10-01] MEDS ORDERED: Bupivacaine PF 0.5% 30 ML VIAL ONE (18:39)
[2018-10-01] MEDS ORDERED: Bacitracin Zinc Ointment 30 gm TUBE ONE (18:39)
[2018-10-01] MEDS ORDERED: Fentanyl 100 MCG/2 ML VIAL ONE ×3 (18:50→21:26)
[2018-10-01] MEDS ORDERED: Tobramycin Sulfate 1.2 GM VIAL ONE (20:06)
[2018-10-01] MEDS ORDERED: Promethazine HCl 25 MG/ML VIAL IM PRN (21:16)
[2018-10-01] MEDS ORDERED: Promethazine HCl 25 MG/ML VIAL SLOW IVP PRN (21:16)
[2018-10-01] MEDS ORDERED: Ondansetron HCl/PF 4 MG/2 ML Vial IVP PRN (21:16)
[2018-10-02] MEDS: Dextrose 5 % And 0.9 % NaCl 1,000 ML IV SCH ×2 (00:01→15:07)
[2018-10-02] MEDS: Morphine 2 MG/ML SYRINGE IVP PRN ×2 (00:55→04:40)
[2018-10-02] MEDS: Cefepime 2 GM in Sodium Chloride 0.9% 100 ML IVPB SCH ×2 (00:57→12:03)
[2018-10-02] MEDS: HYDROcodone/Acetaminophen 10/325 mg Tablet PO PRN ×4 (02:56→18:35)
[2018-10-02 06:10] LABS: #Lymphocytes 0.5 thou/uL (1.20-3.40); %Eosinophils 0.1 % (0.0-10.0); %Lymphocytes 4.5 % (21.0-51.0); %Monocytes 8.7 % (0.0-10.0); %Neutrophils 86.7 % (42.0-75.0); Hemoglobin 8.3 g/dL (12.0-16.0); Mean Corpuscular HGB CONC 32.2 g/dL (32.0-36.0); Mean Platelet Volume 6.8 fL (7.4-10.4); Platelet Count 640 thou/uL (130-400); Red Blood Cell (RBC) Count 2.77 mill/uL (4.20-5.40); White Blood Cell (WBC) Count 11.5 thou/uL (4.8-10.8)
--- NOTE | 2018-10-02 06:25 | OP ---
PREOPERATIVE DIAGNOSIS: Right leg wound necrosis with previous diagnosis of Pseudomonas infection. POSTOPERATIVE DIAGNOSES: Gross evidence of a 3 cm long x 5 mm area of subcutaneous fat, still infect ed lateral wound, central and proximal end. No distal wound abnormality. There is now a 4 cm x 1.5 cm area of exposed quadriceps tendon, not covered with granulation bed at this point PROCEDURES PERFORMED: 1. Wound debridement deep including lateral gutter greater than medial gutter. 2. Application of tobramycin antibiotic beads. 3. Application of VAC dressing, central 5 x 2 cm area of white sponge covered by a total of 15 x 12 black VAC sponge with excellent suction. COMPLICATIONS: None. TOURNIQUET TIME: None. BLOOD LOSS: 150 mL. INDICATION: The patient returns for staged wound management with a necrotic wound that dehisced when she had a fall in the clinic. She has been evaluated by Medicine. No syncopal cardiac episode or e tiology found, but will return to the operating room because it has now been 48 hours and we need to debride and possibly close partially and skin graft if the wound visualization indicated. DESCRIPTION OF PROCEDURE: The patient had the limb prepped and draped. We only draped one leg after removed the dressing and saw there was a small malodor and there was an area of mucopurulent fat und erneath the region of the skin where there was a previous loss of skin because of skin necrosis on th e edge. For this reason, we then inspected the entire wound, found an area on the lateral wound of 5 mm x 3 cm area of fat necrosis, possible mucopurulence that was resected with a combination of 11 bl christa knife, curette, rongeur until we had bleeding tissue. We did the same thing in the superior late ral edge of the wound using the same debridement techniques down to, but not including the fascia, wh ich was visualized. The fascia was covered with skin once debridement was finished in all areas exce pt for the previously described distal tendon. The patellar area was covered with granulation tissue . Once we had done all the debridement and cleared all the underlying debris, we irrigated the gutters and were able to obtain a very clean bleeding surface of the entire lateral superior medial edge and inferior edge of the wound. We now dried the area, mixed antibiotic tobramycin impregnated beads on three separate #2 Ethibonds. We packed the space and once we had hemostasis, placed a white sponge over the tendon area, ashley ck sponge over the rest and obtained good VAC suction. We also moved to the VAC connected tubing and sponge to regular VAC instead had excellent suction. At this point, we cleaned the leg, we placed Dane wrap over the well functioning VAC assembly and turn ed our attention to the patient's scalp where she had indwelling sutures from a scalp injury almost 1 4 days ago. She had requested removal. This was done under general anesthesia, the prepping, locali zing the hair cutting some more hair, we were able to localize multiple sutures including 3 not previ ously delineated. We removed all the sutures, there is no evidence of wound dehiscence, no bleeding excessively and there was no retardation. The sutures now were all removed, we expect the hair area there is no abnormality and the patient left the operating room after this procedure without evidence of anesthetic or operative complication.
[2018-10-02] MEDS: Ketorolac Tromethamine 30 MG/ML VIAL IVP PRN ×2 (06:53→20:36)
[2018-10-02] MEDS: HYDROcodone/Acetaminophen 7.5/325 mg Tablet PO PRN ×3 (06:53→20:35)
[2018-10-02] MEDS: Aspirin 81 mg Enteric Coated Tablet PO SCH ×2 (09:21→20:37)
--- NOTE | 2018-10-02 10:35 | EKG ---
Test Reason : PREOP Blood Pressure : / mmHG Vent. Rate : 096 BPM Atrial Rate : 096 BPM P-R Int : 130 ms QRS Dur : 086 ms QT Int : 352 ms P-R-T Axes : 044 072 044 degrees QTc Int : 444 ms Sinus rhythm No previous ECGs available Confirmed by DR. Lucia JOE ([id number]) on 10/02/2018 10:35:02 AM Referred By: CARLOS Confirmed By:DR. Lucia JOE
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
[2018-10-02] MEDS ORDERED: Milk Of Magnesia 30 ML UDCUP PO PRN (18:38)
[2018-10-02] MEDS: Senokot S 8.6-50 MG TAB PO SCH (20:37)
[2018-10-03] MEDS: HYDROcodone/Acetaminophen 10/325 mg Tablet PO PRN ×5 (00:36→23:18)
[2018-10-03] MEDS: Cefepime 2 GM in Sodium Chloride 0.9% 100 ML IVPB SCH ×2 (00:37→13:06)
[2018-10-03] MEDS: Dextrose 5 % And 0.9 % NaCl 1,000 ML IV SCH ×3 (00:37→20:20)
[2018-10-03] MEDS: HYDROcodone/Acetaminophen 7.5/325 mg Tablet PO PRN ×3 (02:53→15:29)
[2018-10-03 04:38] LABS: #Basophils 0.1 thou/uL (0.0-0.2); #Eosinphils 0.4 thou/uL (0.0-0.7); #Lymphocytes 2.4 thou/uL (1.20-3.40); #Monocytes 1.1 thou/uL (0.11-0.59); #Neutrophils 5.7 thou/uL (1.40-6.50); %Basophils 0.9 % (0.0-1.0); %Eosinophils 3.7 % (0.0-10.0); %Monocytes 11.6 % (0.0-10.0); %Neutrophils 58.8 % (42.0-75.0); Hemoglobin 7.2 g/dL (12.0-16.0); Mean Corpuscular HGB CONC 31.7 g/dL (32.0-36.0); Mean Corpuscular Hemoglobin 29.5 pg (27.0-31.0); Mean Corpuscular Volume 93.2 fL (78.0-98.0); Mean Platelet Volume 6.8 fL (7.4-10.4); Platelet Count 545 thou/uL (130-400); Red Blood Cell (RBC) Count 2.42 mill/uL (4.20-5.40); White Blood Cell (WBC) Count 9.6 thou/uL (4.8-10.8)
[2018-10-03] MEDS: Ketorolac Tromethamine 30 MG/ML VIAL IVP PRN ×2 (08:57→20:20)
[2018-10-03] MEDS ORDERED: Tobramycin Sulfate 1.2 GM VIAL ONE (09:00)
[2018-10-03] MEDS: Aspirin 81 mg Enteric Coated Tablet PO SCH ×2 (09:28→20:21)
[2018-10-03] MEDS: Senokot S 8.6-50 MG TAB PO SCH ×2 (09:28→20:21)
[2018-10-03] MEDS ORDERED: Midazolam HCl 2 mg/2 ml Vial ONE ×2 (09:40→09:43)
[2018-10-03] MEDS ORDERED: Clindamycin/D5W 900 mg/50 ml Premix Bag ONE (09:40)
[2018-10-03] MEDS ORDERED: Fentanyl 100 MCG/2 ML VIAL ONE (09:43)
[2018-10-03] MEDS ORDERED: Promethazine HCl 25 MG/ML VIAL SLOW IVP PRN (11:16)
[2018-10-03] MEDS ORDERED: Ondansetron HCl/PF 4 MG/2 ML Vial IVP PRN (11:16)
[2018-10-03] MEDS ORDERED: Promethazine HCl 25 MG/ML VIAL IM PRN (11:16)
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
[2018-10-03] MEDS ORDERED: PHENYLEPHRINE-NS 100 MCG/ML 10 ML SYRINGE ONE (12:59)
[2018-10-03] MEDS ORDERED: PROPOFOL 200 MG/20 ML VIAL ONE (12:59)
[2018-10-03] MEDS ORDERED: Lidocaine 1% PF 5 ML VIAL ONE (12:59)
[2018-10-03] MEDS ORDERED: ePHEDrine/0.9% NaCl/PF SYRINGE 50 mg/10 ml ONE (12:59)
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
--- NOTE | 2018-10-03 23:02 | OP ---
DATE OF PROCEDURE: 10/03/2018 PREOPERATIVE DIAGNOSES: 1. Right leg open wound complex with previous Pseudomonas infection. 2. Anemia. PROCEDURES PERFORMED: 1. Transfusion of 3 units packed red blood cells. 2. VAC dressing change, reapplication of 100 cm2 area with white and black sponge. 3. Antibiotic bead exchange, tobramycin powder, and debridement of wound. DEBRIDEMENT TECHNIQUES: Include the following; Excisional technique, wound edges and some deep to ro tation with rongeur, tenotomy scissors, 11-blade knife, and [place] blade irrigation with 3 lite rs of normal saline with antibiotics aside. TOURNIQUET TIME: None. BLOOD LOSS: 15 mL. No gross infection was seen on small amount of necrosis with wound edge and wound central area. DESCRIPTION OF PROCEDURE: After successful general endotracheal anesthesia, limb was prepped and lissa ped and there is a gross infection. Then, we gave systemic debridement of the wound. beginnin g proximally and laterally, coming down distally and then medially and then proximal medial. Once th is was done, we realized that we could close approximately 1 cm of nail of the kneecap, but the area was exposed. Paratenon did not change. For this reason, I removed the antibiotic beads, placed new antibiotic beads with tobramycin powder inside in all the space areas and then we reapplied the VAC, white sponge with black on top. She tolerated the procedure well, had excellent suction of the VAC. At the end of procedure and by the time, she got to recovery room, had received both units of b lood.
[2018-10-04] MEDS: Cefepime 2 GM in Sodium Chloride 0.9% 100 ML IVPB SCH ×2 (00:04→12:37)
[2018-10-04] MEDS: HYDROcodone/Acetaminophen 7.5/325 mg Tablet PO PRN ×2 (02:20→08:30)
[2018-10-04] MEDS: Morphine 2 MG/ML SYRINGE IVP PRN ×4 (02:21→17:54)
[2018-10-04] MEDS: HYDROcodone/Acetaminophen 10/325 mg Tablet PO PRN ×4 (05:31→20:34)
[2018-10-04] MEDS: Dextrose 5 % And 0.9 % NaCl 1,000 ML IV SCH ×3 (05:31→23:32)
[2018-10-04 05:43] LABS: #Basophils 0.1 thou/uL (0.0-0.2); #Eosinphils 0.3 thou/uL (0.0-0.7); #Monocytes 1.5 thou/uL (0.11-0.59); #Neutrophils 6.2 thou/uL (1.40-6.50); %Basophils 1.4 % (0.0-1.0); %Eosinophils 3.4 % (0.0-10.0); %Lymphocytes 19.3 % (21.0-51.0); %Monocytes 14.8 % (0.0-10.0); %Neutrophils 61.1 % (42.0-75.0); Hemoglobin 10.7 g/dL (12.0-16.0); Mean Corpuscular HGB CONC 31.9 g/dL (32.0-36.0); Mean Corpuscular Hemoglobin 29.6 pg (27.0-31.0); Mean Corpuscular Volume 92.8 fL (78.0-98.0); Mean Platelet Volume 7.1 fL (7.4-10.4); Platelet Count 553 thou/uL (130-400); RBC Distribution Width 13.9 % (11.5-14.5); Red Blood Cell (RBC) Count 3.61 mill/uL (4.20-5.40); White Blood Cell (WBC) Count 10.2 thou/uL (4.8-10.8)
[2018-10-04] MEDS: Senokot S 8.6-50 MG TAB PO SCH ×2 (08:31→20:34)
[2018-10-04] MEDS: Aspirin 81 mg Enteric Coated Tablet PO SCH ×2 (08:31→20:34)
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
[2018-10-04] MEDS: traMADol HCl 50 MG TAB PO SCH ×3 (13:27→23:32)
[2018-10-04] MEDS: Ibuprofen 800 MG TAB PO SCH (17:39)
[2018-10-04] MEDS ORDERED: FLUoxetine HCl 20 MG CAP PO SCH (23:00)
[2018-10-05] MEDS: Cefepime 2 GM in Sodium Chloride 0.9% 100 ML IVPB SCH ×2 (01:13→12:29)
[2018-10-05] MEDS: Ibuprofen 800 MG TAB PO SCH ×3 (01:13→17:58)
[2018-10-05] MEDS: HYDROcodone/Acetaminophen 10/325 mg Tablet PO PRN ×4 (01:14→20:25)
[2018-10-05] MEDS: Morphine 2 MG/ML SYRINGE IVP PRN ×3 (01:26→09:11)
[2018-10-05] MEDS: Levothyroxine Sodium 112 MCG TAB PO SCH (05:41)
[2018-10-05] MEDS: traMADol HCl 50 MG TAB PO SCH ×4 (05:42→23:37)
[2018-10-05] MEDS ORDERED: Morphine 4 MG/ML VIAL IV SCH (06:30)
[2018-10-05 06:31] LABS: #Basophils 0.1 thou/uL (0.0-0.2); #Eosinphils 0.5 thou/uL (0.0-0.7); #Lymphocytes 1.9 thou/uL (1.20-3.40); #Monocytes 1.2 thou/uL (0.11-0.59); #Neutrophils 5.3 thou/uL (1.40-6.50); %Basophils 1.1 % (0.0-1.0); %Eosinophils 5.1 % (0.0-10.0); %Lymphocytes 21.2 % (21.0-51.0); %Monocytes 13.3 % (0.0-10.0); %Neutrophils 59.4 % (42.0-75.0); Hemoglobin 10.2 g/dL (12.0-16.0); Mean Corpuscular HGB CONC 31.2 g/dL (32.0-36.0); Mean Corpuscular Hemoglobin 29.3 pg (27.0-31.0); Platelet Count 567 thou/uL (130-400); RBC Distribution Width 13.8 % (11.5-14.5); Red Blood Cell (RBC) Count 3.48 mill/uL (4.20-5.40); White Blood Cell (WBC) Count 8.9 thou/uL (4.8-10.8)
[2018-10-05] MEDS: HYDROcodone/Acetaminophen 7.5/325 mg Tablet PO PRN ×3 (08:05→22:16)
[2018-10-05] MEDS: Aspirin 81 mg Enteric Coated Tablet PO SCH ×2 (08:05→20:21)
[2018-10-05] MEDS: Senokot S 8.6-50 MG TAB PO SCH ×2 (08:05→20:21)
[2018-10-05] MEDS: FLUoxetine HCl 20 MG CAP PO SCH ×3 (08:05→20:22)
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
[2018-10-05] MEDS: Dextrose 5 % And 0.9 % NaCl 1,000 ML IV SCH (15:42)
[2018-10-06] MEDS: Ibuprofen 800 MG TAB PO SCH ×3 (01:08→18:20)
[2018-10-06] MEDS: Cefepime 2 GM in Sodium Chloride 0.9% 100 ML IVPB SCH ×2 (01:08→12:19)
[2018-10-06] MEDS: HYDROcodone/Acetaminophen 10/325 mg Tablet PO PRN ×5 (04:01→20:50)
[2018-10-06] MEDS: Levothyroxine Sodium 112 MCG TAB PO SCH (05:53)
[2018-10-06] MEDS: traMADol HCl 50 MG TAB PO SCH ×3 (05:53→18:20)
[2018-10-06] MEDS: FLUoxetine HCl 20 MG CAP PO SCH ×3 (08:18→20:51)
[2018-10-06] MEDS: Aspirin 81 mg Enteric Coated Tablet PO SCH ×2 (08:18→20:50)
[2018-10-06] MEDS: Senokot S 8.6-50 MG TAB PO SCH ×2 (08:18→20:50)
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
[2018-10-07] MEDS: HYDROcodone/Acetaminophen 10/325 mg Tablet PO PRN ×3 (00:51→08:52)
[2018-10-07] MEDS: traMADol HCl 50 MG TAB PO SCH ×2 (00:52→06:08)
[2018-10-07] MEDS: Cefepime 2 GM in Sodium Chloride 0.9% 100 ML IVPB SCH (00:54)
[2018-10-07] MEDS: Ibuprofen 800 MG TAB PO SCH ×2 (01:22→11:05)
[2018-10-07] MEDS: Levothyroxine Sodium 112 MCG TAB PO SCH (06:07)
[2018-10-07] MEDS: Morphine 2 MG/ML SYRINGE IVP PRN (07:57)
[2018-10-07] MEDS: FLUoxetine HCl 20 MG CAP PO SCH (08:52)
[2018-10-07] MEDS: Senokot S 8.6-50 MG TAB PO SCH (08:53)
[2018-10-07] MEDS: Aspirin 81 mg Enteric Coated Tablet PO SCH (08:53)
[2018-10-07 11:13] VITALS: BP 151/89; TEMP 98
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
== END 2018-10-07 12:11 | disposition home or self-care (01) | DRG 902 ==
LOC: SURG A 18:33
PROVIDERS: ADMIT Orthopaedic Surgery Hand Surgery; ATTEND Orthopaedic Surgery Hand Surgery
PROC: 0LBL0ZZ Excision of Right Upper Leg Tendon, Open Approach (ICD-10-PCS; principal; 2018-09-28)
PROC: 0JBL0ZZ Excision of Right Upper Leg Subcutaneous Tissue and Fascia, Open Approach (ICD-10-PCS; 2018-10-01)
PROC: 3E0102A Introduction of Anti-Infective Envelope into Subcutaneous Tissue, Open Approach (ICD-10-PCS; 2018-10-01)
PROC: 0JBL0ZZ Excision of Right Upper Leg Subcutaneous Tissue and Fascia, Open Approach (ICD-10-PCS; 2018-10-03)
PROC: 3E0102A Introduction of Anti-Infective Envelope into Subcutaneous Tissue, Open Approach (ICD-10-PCS; 2018-10-03)
PROC: 0JP Subcutaneous Tissue and Fascia, Removal (ICD-10-PCS; 2018-10-03)
PROC: 30233N1 Transfusion of Nonautologous Red Blood Cells into Peripheral Vein, Percutaneous Approach (ICD-10-PCS; 2018-10-03)
DX: T81.31XA Disruption of external operation (surgical) wound, not elsewhere classified, initial encounter (principal); T81.49XA Infection following a procedure, other surgical site, initial encounter; I96 Gangrene, not elsewhere classified; S22.060A Wedge compression fracture of T7-T8 vertebra, initial encounter for closed fracture; S22.41XA Multiple fractures of ribs, right side, initial encounter for closed fracture; E03.9 Hypothyroidism, unspecified; D64.9 Anemia, unspecified; B96.5 Pseudomonas (aeruginosa) (mallei) (pseudomallei) as the cause of diseases classified elsewhere; B96.1 Klebsiella pneumoniae [K. pneumoniae] as the cause of diseases classified elsewhere; Y83.8 Other surgical procedures as the cause of abnormal reaction of the patient, or of later complication, without mention of misadventure at the time of the procedure; V29.9XXA Motorcycle rider (driver) (passenger) injured in unspecified traffic accident, initial encounter
CPT/HCPCS: 36415; 36430; 72072; 85025; 85652; 86850; 86900; 86901; 87070; 87077; 87186; 87205; 90471; 90686; 93005; 93010; 93880; C1713; G0008; G8978-GP-CK; G8979-GP-CK; G8980-GP-CK; J0692; J1100; J1885; J2001; J2250; J2270; J2405; J2704; J2765; J3010; J3260; J3370; J3490; J7042; J7050; P9016; S0020

== ENCOUNTER 2018-10-13 17:25 | Observation (INO) | payer SELFPAY ==
[~2018-10-13 17:25] MED LIST changes: +Clindamycin/D5W 600 mg/50 ml Premix Bag ONE; +Dexamethasone 20 MG/5 ML VIAL ONE; -Ketorolac Tromethamine 30 MG/ML VIAL ONE; +ePHEDrine/0.9% NaCl/PF SYRINGE 50 mg/10 ml ONE
[2018-10-13 17:44] LABS: #Basophils 0.1 thou/uL (0.0-0.2); #Eosinphils 0.2 thou/uL (0.0-0.7); #Monocytes 0.9 thou/uL (0.11-0.59); #Neutrophils 4.8 thou/uL (1.40-6.50); %Basophils 0.6 % (0.0-1.0); %Eosinophils 2.3 % (0.0-10.0); %Lymphocytes 25.1 % (21.0-51.0); %Monocytes 11.5 % (0.0-10.0); %Neutrophils 60.5 % (42.0-75.0); Hemoglobin 10.3 g/dL (12.0-16.0); Mean Corpuscular Hemoglobin 30.7 pg (27.0-31.0); Mean Corpuscular Volume 93.1 fL (78.0-98.0); Mean Platelet Volume 7.3 fL (7.4-10.4); Platelet Count 426 thou/uL (130-400); RBC Distribution Width 13.4 % (11.5-14.5); Red Blood Cell (RBC) Count 3.34 mill/uL (4.20-5.40); White Blood Cell (WBC) Count 7.9 thou/uL (4.8-10.8)
[2018-10-13] MEDS ORDERED: Fentanyl 100 MCG/2 ML VIAL ONE ×3 (18:13→20:56)
[2018-10-13] MEDS ORDERED: Midazolam HCl 2 mg/2 ml Vial ONE (18:13)
[2018-10-13] MEDS ORDERED: Thrombin 5000 UNITS/5 ML VIAL ONE (18:25)
[2018-10-13] MEDS ORDERED: Sodium Chloride 0.9% 20 ML ONE (19:13)
[2018-10-13] MEDS ORDERED: Bacitracin Zinc Ointment 30 gm TUBE ONE (19:47)
[2018-10-13] MEDS ORDERED: Milk Of Magnesia 30 ML UDCUP PO PRN (20:35)
[2018-10-13] MEDS ORDERED: Morphine 2 MG/ML SYRINGE IVP PRN (20:35)
[2018-10-13] MEDS ORDERED: Bisacodyl 10 MG SUPP PR PRN (20:35)
[2018-10-13] MEDS ORDERED: Ondansetron PF 4 MG/2 ML Vial IV PRN (20:35)
[2018-10-13] MEDS ORDERED: Meperidine HCl/PF 25 MG/ML VIAL IM PRN (20:39)
[2018-10-13] MEDS ORDERED: RENALLY ADJUST ANTIBIOTICS FS SCH (20:45)
--- NOTE | 2018-10-13 21:06 | RAD ---
TWO VIEWS OF THE RIGHT KNEE: 10/13/18 HISTORY: Potential foreign body. FINDINGS: There is a large skin defect of anterior thigh, superior to right knee with associated gas within the soft tissues. There are six metallic elo within the soft tissues medial to the distal right femo ral shaft. No acute osseous abnormality. IMPRESSION: Postoperative changes as above. POS: SAMMY
[2018-10-13] MEDS: Aspirin 81 mg Enteric Coated Tablet PO SCH (22:25)
[2018-10-13] MEDS: HYDROcodone/Acetaminophen 5/325 mg Tablet PO PRN (22:27)
[2018-10-13 22:35] VITALS: BMI 30.2
[2018-10-13] MEDS: cefOXitin 2 GM in Sodium Chloride 0.9% 100 ML IVPB SCH (22:47)
[2018-10-14] MEDS: Ketorolac Tromethamine 30 MG/ML VIAL IVP SCH ×3 (00:16→11:06)
[2018-10-14] MEDS: Acetaminophen/Codeine 30-300mg Tablet PO PRN ×3 (01:02→14:30)
[2018-10-14] MEDS: cefOXitin 2 GM in Sodium Chloride 0.9% 100 ML IVPB SCH (05:53)
[2018-10-14] MEDS: Aspirin 81 mg Enteric Coated Tablet PO SCH (08:44)
[2018-10-14] MEDS ORDERED: TETANUS AND DIPHTHERIA TOX/PF 0.5 ML DISP.SYRIN IM SCH (09:00)
[2018-10-14] MEDS: HYDROcodone/Acetaminophen 5/325 mg Tablet PO PRN (11:05)
[2018-10-14 11:52] VITALS: BP 112/64; TEMP 98.4
--- NOTE | 2018-10-15 13:11 | OP ---
DATE OF PROCEDURE: 10/13/2018 PREOPERATIVE DIAGNOSIS: Open wound with antibiotic beads indwelling on the right distal thigh. POSTOPERATIVE DIAGNOSES: 1. 15X7 meter area of open wound. 2. No major undermining. 3. Beads put on infection. PROCEDURE PERFORMED: 1. Removal of antibiotic beads under anesthesia. 2. Wound debridement. 3. Intraoperative radiographs. 4. A 15 x 7 cm split-thickness skin graft applied at the harvest of ipsilateral thigh. ESTIMATED BLOOD LOSS: 15 mL. TOURNIQUET TIME: Zero. ANESTHESIA: General LMA technique by [place] anesthesia. DESCRIPTION OF PROCEDURE: After successful general LMA technique, the limb was prepped and draped. The patient had had the time-out done appropriately. We had the entire thigh, leg and hip free up to the level of anterior . We then inspected the wound, pulled the antibiotic beads, had an x-ray performed, portable, which revealed no further beads from the sagittal plane and then we began debridement of small amount of fat and a 2 cm X 5 mm section of the distal wound on the lateral edge, which was early necrotic. There was no further necrotic area seen, we irrigated the entire wound including the potential space with 2 L of normal saline with antibiotics inside under pressure. Then, the patient had the wound measured, it measured approximately 15 cm long with the distal 2 cm being only 1 cm wide and 7 cm size. We then harvested with a dermatome 0.22 mm split-thickness skin graft measured to 1 and 1.5 and they did fit well. It was attached with elo, bolstered with Adaptic, bacitracin and mineral oil soaked ABD. The patient did have a bulky dressing applied, covered the donor site with benzoid attached Tegaderm, placed Dane wraps and Kerlix over the wounds and there was no complication. Job ID: [id number]
== END 2018-10-14 14:30 | disposition home or self-care (01) ==
LOC: SDC 17:25 → SURG B 20:59
PROVIDERS: ADMIT Orthopaedic Surgery Hand Surgery; ATTEND Orthopaedic Surgery Hand Surgery
PROC: 0HRHX74 Replacement of Right Upper Leg Skin with Autologous Tissue Substitute, Partial Thickness, External Approach (ICD-10-PCS; principal; 2018-10-13)
DX: S71.101A Unspecified open wound, right thigh, initial encounter (principal); F41.9 Anxiety disorder, unspecified; F32.9 Major depressive disorder, single episode, unspecified; Z79.2 Long term (current) use of antibiotics; Z79.899 Other long term (current) drug therapy; Z88.0 Allergy status to penicillin; Z98.84 Bariatric surgery status; Z98.890 Other specified postprocedural states; V89.2XXA Person injured in unspecified motor-vehicle accident, traffic, initial encounter
CPT/HCPCS: 36415; 85025; 85652; 96374; 96375; 96376; G0378; J0694; J1100; J1885; J2001; J2250; J2405; J2704; J3010; J3490; J7050

== ENCOUNTER 2018-10-19 13:07 | Outpatient (CLI) | payer SELFPAY ==
--- NOTE | 2018-10-19 13:56 | RAD ---
THREE VIEWS THORACIC SPINE: Comparison: 09-30-18 History: Follow up exam. Thoracic spine fracture. FINDINGS: There is a severe compression fracture involving the lower thoracic spine at approximately the T8 lev el. Stable kyphosis. Multiple right rib fractures are noted. IMPRESSION: Stable compression fracture at T8 with associated kyphosis. POS: [facility]
== END 2018-10-19 13:08 | disposition home or self-care (01) ==
LOC: TBSIIMAG 13:07
PROVIDERS: ATTEND Neurological Surgery
DX: M48.54XA Collapsed vertebra, not elsewhere classified, thoracic region, initial encounter for fracture (principal); M40.204 Unspecified kyphosis, thoracic region
CPT/HCPCS: 72072

== ENCOUNTER 2018-11-11 08:27 | Outpatient (CLI) | payer OTHER ==
--- NOTE | 2018-11-11 11:24 | CT ---
CT THORACIC SPINE WITHOUT CONTRAST: HISTORY: Fracture. COMPARISON: CT chest, abdomen, and pelvis from 09/13/2018. Thoracic spine radiographs from 10/19/2018. FINDINGS: There are fractures of the right lateral 3rd, 4th, 5th, 6th, and 7th ribs. There are also fractures of the left 1st, 2nd, 3rd, 4th, 5th, 6th, 7th, and 8th ribs, posteriorly. There are likely other fra ctures of the ribs, although this is a thoracic spine CT, and they are not well evaluated. There is progressive height loss of the T7 fracture, with complete anterior height loss and 50% poste rior height loss. There is retropulsion of the fragment, 6 mm, with narrowing of the spinal canal to approximately 5 mm. This appears slightly progressed from the comparison examination. There is als o an anterior-superior endplate fracture of T8 with approximately 20% anterior height loss. Fracture s of the bilateral lamina of T7 are present without any significant healing. An anterior-superior en dplate fracture of T10 is present with 15% anterior height loss. No retropulsion. A T12 anterior-waterman perior endplate fracture is also present with 5% to 10% anterior height loss. IMPRESSION: 1. Progressive height loss of the complete burst fracture of T7 with further retropulsion and narrow ing of the spinal canal. 2. There are fractures of the T8, T10, and T12 anterior-superior endplates, which were not as appare nt on the prior examination. POS: [facility]
== END 2018-11-11 08:28 | disposition home or self-care (01) ==
LOC: TBSIIMAG 08:27
PROVIDERS: ATTEND Neurological Surgery
DX: S22.061A Stable burst fracture of T7-T8 vertebra, initial encounter for closed fracture (principal); S22.069A Unspecified fracture of T7-T8 vertebra, initial encounter for closed fracture; S22.079A Unspecified fracture of T9-T10 vertebra, initial encounter for closed fracture; S22.089A Unspecified fracture of T11-T12 vertebra, initial encounter for closed fracture; S32.009A Unspecified fracture of unspecified lumbar vertebra, initial encounter for closed fracture
CPT/HCPCS: 72128

== ENCOUNTER 2018-11-19 07:16 | Day surgery (SDC) | payer OTHER, SELFPAY ==
[2018-11-18 14:55] VITALS: BMI 30.2
[2018-11-19 08:08] LABS: #Basophils 0.1 thou/uL (0.0-0.2); #Eosinphils 0.1 thou/uL (0.0-0.7); #Lymphocytes 1.6 thou/uL (1.20-3.40); #Monocytes 0.8 thou/uL (0.11-0.59); #Neutrophils 3.9 thou/uL (1.40-6.50); %Basophils 0.8 % (0.0-1.0); %Eosinophils 2.2 % (0.0-10.0); %Lymphocytes 24.6 % (21.0-51.0); %Monocytes 11.8 % (0.0-10.0); %Neutrophils 60.7 % (42.0-75.0); Hemoglobin 11.3 g/dL (12.0-16.0); Mean Corpuscular HGB CONC 32.5 g/dL (32.0-36.0); Mean Corpuscular Hemoglobin 30.4 pg (27.0-31.0); Mean Corpuscular Volume 93.6 fL (78.0-98.0); Mean Platelet Volume 7.5 fL (7.4-10.4); Platelet Count 325 thou/uL (130-400); RBC Distribution Width 13.6 % (11.5-14.5); Red Blood Cell (RBC) Count 3.71 mill/uL (4.20-5.40); White Blood Cell (WBC) Count 6.4 thou/uL (4.8-10.8)
[2018-11-19] MEDS ORDERED: Clindamycin/D5W 600 mg/50 ml Premix Bag ONE (08:34)
[2018-11-19] MEDS ORDERED: Fentanyl 100 MCG/2 ML VIAL ONE ×2 (09:08→10:25)
[2018-11-19] MEDS ORDERED: Midazolam HCl 2 mg/2 ml Vial ONE (09:08)
[2018-11-19] MEDS ORDERED: Bupivacaine PF 0.5% 30 ML VIAL ONE (09:40)
[2018-11-19] MEDS ORDERED: Bacitracin Zinc Ointment 30 gm TUBE ONE (09:40)
[2018-11-19] MEDS ORDERED: Betamet Acet/Betamet Na Ph 30 MG/5 ML VIAL ONE (09:40)
[2018-11-19] MEDS ORDERED: Thrombin 5000 UNITS/5 ML VIAL ONE (10:37)
[2018-11-19] MEDS ORDERED: Ketorolac Tromethamine 30 MG/ML VIAL ONE ×2 (11:11→12:11)
[2018-11-19] MEDS ORDERED: ePHEDrine/0.9% NaCl/PF SYRINGE 50 mg/10 ml ONE (12:11)
[2018-11-19] MEDS ORDERED: Ondansetron PF 4 MG/2 ML Vial ONE (12:11)
[2018-11-19] MEDS ORDERED: Dexamethasone 20 MG/5 ML VIAL ONE (12:11)
[2018-11-19] MEDS ORDERED: Lidocaine 1% PF 5 ML VIAL ONE (12:11)
[2018-11-19] MEDS ORDERED: PROPOFOL 200 MG/20 ML VIAL ONE (12:11)
[2018-11-19] MEDS ORDERED: HYDROcodone/Acetaminophen 5/325 mg Tablet ONE (12:36)
--- NOTE | 2018-11-19 14:24 | OP ---
DATE OF PROCEDURE: 11/19/2018 PREOPERATIVE DIAGNOSIS: Wound, nonhealing, right distal thigh with a 2 x 1 cm area of necrotic eschar. PROCEDURES PERFORMED: 1. Debridement of wound and eschar. 2. Split-thickness skin graft, harvest of ipsilateral thigh 8 x 2 cm, depth 0.20. COMPLICATIONS: None. TOURNIQUET TIME: None. ESTIMATED BLOOD LOSS: 10 mL. INDICATION FOR PROCEDURE: The patient has had a skin graft x2, previous infection, deep proximal lateral wound requiring multiple debridements, one for control and one for skin graft, but this small distal area in line with the superior portion of the patella and the distal portion of the quad tendon did not heal. There was a necrotic area that did not heal with dressing changes. We felt instead of waiting, time is for debridement and possible primary skin graft was indicated. There was no gross abscess. No abscess was found. DESCRIPTION OF PROCEDURE: After successful general LMA technique by [facility], the limb was prepped and draped. Time-out done appropriately. We then debrided the skin edges to make a 1 cm wound approximately 1.5 cm, proximal 1/3rd of the wound, where there was a 2 cm long, 1 cm wide, sofie brown grayish necrotic fat. There was no deep abscess seen. No abscess undermined it, and so we irrigated this area with a liter of normal saline until we had bleeding fat and tissue. No exposed paratenon. Then, we harvested a skin graft. Appropriate size for this, 8 x 1.5 cm and then meshed with 1 to 1.5. We then generously placed the graft over the bleeding surface after control of hemostasis. Stapled it appropriately to include its deepest recesses and there was no undermining. We then placed thrombin-soaked Gelfoam and Tegaderm over the donor site, bolstered with the primary grafted recipient site with bacitracin under Adaptic, under mineral oil soaked ABD, also stapled. Bulky dressing was applied. Dane wrap over all, 6 inch and the patient left the operating room without evidence of anesthetic complication. A knee immobilizer will be applied in the PACU. Job ID: [id number]
== END 2018-11-19 13:03 | disposition home or self-care (01) ==
LOC: SDC 07:16
PROVIDERS: ATTEND Orthopaedic Surgery Hand Surgery
PROC: 0HRHX74 Replacement of Right Upper Leg Skin with Autologous Tissue Substitute, Partial Thickness, External Approach (ICD-10-PCS; principal; 2018-11-19)
DX: T81.89XA Other complications of procedures, not elsewhere classified, initial encounter (principal); S71.101A Unspecified open wound, right thigh, initial encounter; F41.9 Anxiety disorder, unspecified; F32.9 Major depressive disorder, single episode, unspecified; Z79.899 Other long term (current) drug therapy; Z98.84 Bariatric surgery status
CPT/HCPCS: 36415; 85025; 96372; J0702; J1885; J2250; J3010; J3490; S0020

== ENCOUNTER 2018-12-09 08:41 | Outpatient (CLI) | payer OTHER ==
--- NOTE | 2018-12-09 09:08 | RAD ---
THORACIC SPINE 3 VIEWS: HISTORY: Back pain. T7 burst fracture. Followup. COMPARISON: 10/19/2018. FINDINGS: Burst fracture of T7 with complete loss of height anteriorly and significant retropulsion is similar in appearance to the previous exam. Very mild superior end plate compression fractures at T8, T10, a nd T12 are also stable. Pedicles are intact on the frontal view. Minimal left convex curvature of the thoracolumbar junction . No new fractures are apparent. IMPRESSION: Stable radiographic appearance of mid and lower thoracic vertebral fractures. POS: [facility]
== END 2018-12-09 08:42 | disposition home or self-care (01) ==
LOC: TBSIIMAG 08:41
PROVIDERS: ATTEND Neurological Surgery
DX: S22.008A Other fracture of unspecified thoracic vertebra, initial encounter for closed fracture (principal)
CPT/HCPCS: 72072